=== PATIENT | female | born 1955 | race African-American/Black ===

== ENCOUNTER 2017-08-25 11:02 | Emergency (ER) | payer MEDICAID ==
[2017-08-25 12:15] LABS: ADD MAN DIFF? NO
[2017-08-25 12:17] LABS: BASO % 1 % (0-3); EOS % 1 % (0-3); HEMATOCRIT 35.2 % (36.0-47.0); HEMOGLOBIN 11.7 g/dL (12.0-15.5); LYMPH # 1.4 x10^3/uL (1.0-4.8); LYMPH % 35 % (24-48); MEAN CORPUSCULAR HEMOGLOBIN 36 pg (25-35); MEAN CORPUSCULAR HGB CONC 33 g/dL (31-37); MEAN CORPUSCULAR VOLUME 110 fL (79-100); MONO # 0.3 x10^3/uL (0.0-1.1); MONO % 7 % (0-9); NEUT # 2.3 x10^3uL (1.8-7.7); NEUT % 56 % (31-73); PLATELET COUNT 357 x10^3/uL (140-400); RED BLOOD COUNT 3.21 x10^6/uL (3.50-5.40); RED CELL DISTRIBUTION WIDTH 18.1 % (11.5-14.5); WHITE BLOOD COUNT 4.1 x10^3/uL (4.0-11.0)
[2017-08-25 12:26] LABS: ANION GAP 8 (6-14); BLOOD UREA NITROGEN 6 mg/dL (7-20); BUN/CREATININE RATIO 10 (6-20); CALCIUM 9.6 mg/dL (8.5-10.1); CARBON DIOXIDE 31 mmol/L (21-32); CHLORIDE 105 mmol/L (98-107); CREATININE 0.6 mg/dL (0.6-1.0); GFR 122.2; GLUCOSE 94 mg/dL (70-99); POTASSIUM 3.4 mmol/L (3.5-5.1); SODIUM 144 mmol/L (136-145)
[2017-08-25 12:32] LABS: ALBUMIN 3.7 g/dL (3.4-5.0); ALK PHOS 76 U/L (46-116); ALT (SGPT) 23 U/L (14-59); AST (SGOT) 25 U/L (15-37); TOTAL PROTEIN 7.5 g/dL (6.4-8.2)
== END 2017-08-25 13:17 | disposition home or self-care (01) ==
LOC: ER 11:02
DX: M79.671 Pain in right foot (principal); M79.672 Pain in left foot
CPT/HCPCS: 36415; 80053; 85025; 93005; 99285-25